=== PATIENT | male | born 1960 | race Caucasian/White ===

== ENCOUNTER 2017-07-09 08:39 | Inpatient (IN) | payer OTHER ==
[~2017-07-09] VITALS: Ht 190.5 cm; Wt 99.8 kg
[~2017-07-09 08:39] MED LIST: CLOPIDOGREL75 M1 PO; GABAPENTIN300 M2 PO; GLIPIZIDE5 MG PO; LISINOPRIL20 MG PO; METFORMIN HCL850 MG PO; ONGLYZA5 M1 PO; TEMAZEPAM30 MG
[2017-07-09 09:26] LABS: CALCIUM 9.1 mg/dL (8.5-10.1); CARBON DIOXIDE 24.9 mmol/L (21-32); CREATININE SERUM 1.9 mg/dL (0.7-1.3); POTASSIUM SERUM 4.2 mmol/L (3.5-5.1)
[2017-07-09 09:31] LABS: ALBUMIN 3.5 g/dL (3.4-5.0); BILIRUBIN TOTAL 0.6 mg/dL (0.20-1.00); TOTAL PROTEIN, SERUM 6.7 g/dL (6.4-8.2)
[2017-07-09 09:33] LABS: BASOPHIL % 0.6 % (0-2); PLATELET COUNT 251 x10^3mcL (130-400); RED CELL DISTRIBUTION WIDTH 13.8 % (11.5-14.5)
[2017-07-09 11:51] VITALS: BP 125/78
[2017-07-09 12:46] VITALS: Ht 190.5 cm; Wt 99.8 kg
[2017-07-09 12:50] LABS: MAGNESIUM 1.9 mg/dL (1.8-2.4); PHOSPHOROUS 3.1 mg/dL (2.5-4.9)
[2017-07-09 12:54] LABS: CHOLESTEROL/HDL RATIO 2.7
[2017-07-09 12:56] LABS: T3 TOTAL 0.98 ng/mL
[2017-07-09 12:57] LABS: FREE T4 1.01 ng/dL (0.76-1.46); FREE THYROXINE INDEX 2.1 ug/dL (1.4-4.5); T4(THYROXINE) 6.4 ug/dL (4.7-13.3)
[2017-07-09 17:31] VITALS: BP 107/72
[2017-07-09 20:58] VITALS: BP 124/64
[2017-07-10 06:44] LABS: UA SPECIFIC GRAVITY 1.025 (1.005-1.035); microscopic required? YES; urine erythrocyte 2+ (NEGATIVE)
[2017-07-10 06:48] VITALS: BP 124/77
[2017-07-10 07:10] LABS: AMPHETAMINE QUAL UR NONE DETECTED (NEG <=1000)
[2017-07-10 10:00] VITALS: BP 114/63
== END 2017-07-10 11:50 | disposition left against medical advice (07) | DRG 204 ==
LOC: ED 08:39 → DU 10:23 → MU 07-10 08:09
PROVIDERS: Emergency Medicine; ADMIT Family Medicine Sports Medicine
DX: I95.1 Orthostatic hypotension (principal); N17.0 Acute kidney failure with tubular necrosis; I69.354 Hemiplegia and hemiparesis following cerebral infarction affecting left non-dominant side; E11.65 Type 2 diabetes mellitus with hyperglycemia; E87.8 Other disorders of electrolyte and fluid balance, not elsewhere classified; B35.1 Tinea unguium; I10 Essential (primary) hypertension; S30.1XXA Contusion of abdominal wall, initial encounter; S70.02XA Contusion of left hip, initial encounter; F41.9 Anxiety disorder, unspecified; S51.012A Laceration without foreign body of left elbow, initial encounter; D64.9 Anemia, unspecified; E86.0 Dehydration; Z91.19 Patient's noncompliance with other medical treatment and regimen; N39.0 Urinary tract infection, site not specified; W19.XXXA Unspecified fall, initial encounter; Y93.89 Activity, other specified; Y92.098 Other place in other non-institutional residence as the place of occurrence of the external cause; Y99.8 Other external cause status
CPT/HCPCS: 82962; 83880; 84439; 90658; 90715; 97530-GP; J1885; J7030; Q0092